=== PATIENT | female | born 1985 | race Caucasian/White ===

== ENCOUNTER → 2017-10-24 | Outpatient (CLI) | payer OTHER ==
[~2017-10-24] MED LIST: ANTIDEPRESSANT; FLUO10; HYDACE5 PO; HYDACE5325 PO; IBUP800 PO; NAPR500 PO; PARO20 PO; PARO30 PO; PENVK500 PO
== END ==
LOC: LAB EV 09:08 → LAB SHORT 09:08
DX: N76.0 Acute vaginitis (principal)
CPT/HCPCS: 87529

== ENCOUNTER → 2017-10-28 | Outpatient (CLI) | payer OTHER | END | disposition home or self-care (01) | LOC: LAB 08:50 → LAB SHORT 08:50 | PROVIDERS: Nurse Practitioner | DX: Z01.411 Encounter for gynecological examination (general) (routine) with abnormal findings (principal) | CPT/HCPCS: G0145 ==

== ENCOUNTER → 2018-07-27 | Outpatient (CLI) | payer OTHER ==
[2018-07-30 03:12] LABS: CHLAMYDIA TRACHOMATIS, NAA Negative (Negative); NEISSERIA GONORRHOEAE, NAA Negative (Negative)
== END | disposition home or self-care (01) ==
LOC: LAB EV 08:15 → LAB SHORT 08:15
PROVIDERS: Nurse Practitioner
DX: Z72.51 High risk heterosexual behavior (principal)
CPT/HCPCS: 87491; 87591

== ENCOUNTER → 2019-01-26 | Outpatient (CLI) | payer OTHER ==
[2019-01-28 02:06] LABS: CHLAMYDIA TRACHOMATIS, NAA Negative (Negative); NEISSERIA GONORRHOEAE, NAA Negative (Negative)
== END | disposition home or self-care (01) ==
LOC: LAB EV 08:30 → LAB SHORT 08:30
PROVIDERS: Nurse Practitioner
DX: Z11.3 Encounter for screening for infections with a predominantly sexual mode of transmission (principal)
CPT/HCPCS: 87491; 87591

== ENCOUNTER → 2019-08-23 | Outpatient (CLI) | payer OTHER | END | disposition home or self-care (01) | LOC: LAB EV 10:00 → LAB SHORT 10:00 | DX: N39.0 Urinary tract infection, site not specified (principal) | CPT/HCPCS: 87086 ==

== ENCOUNTER → 2020-01-19 | Outpatient (CLI) | payer OTHER ==
[2020-01-21 17:10] LABS: CHLAMYDIA BY NAA Negative (Negative); GONOCOCCUS BY NAA Negative (Negative); TRICH VAG BY NAA Negative (Negative)
== END | disposition home or self-care (01) ==
LOC: LAB EV 07:50 → LAB SHORT 07:50
PROVIDERS: Nurse Practitioner
DX: Z11.3 Encounter for screening for infections with a predominantly sexual mode of transmission (principal)
CPT/HCPCS: 87491; 87591; 87661

== ENCOUNTER 2020-06-21 17:35 | Emergency (ER) | payer OTHER ==
[~2020-06-21] VITALS: Ht 175.3 cm; Wt 97.5 kg
== END 2020-06-21 19:40 | disposition left against medical advice (07) ==
LOC: ER 17:35
DX: L98.9 Disorder of the skin and subcutaneous tissue, unspecified (principal); Z53.21 Procedure and treatment not carried out due to patient leaving prior to being seen by health care provider
CPT/HCPCS: 99282

== ENCOUNTER → 2021-06-28 | Outpatient (CLI) | payer OTHER ==
[2021-07-02 11:07] LABS: HPV 16 Negative (Negative); HPV 18 Negative (Negative); HPV OTHER HR TYPES Negative (Negative)
== END | disposition home or self-care (01) ==
LOC: LAB 14:58 → LAB SHORT 14:58
PROVIDERS: Physician Assistant
DX: Z01.419 Encounter for gynecological examination (general) (routine) without abnormal findings (principal)
CPT/HCPCS: 87624; G0145

== ENCOUNTER → 2023-01-29 | Outpatient (CLI) | payer OTHER | LOC: LAB SHORT 11:02 → LAB 11:02 | DX: D22.62 Melanocytic nevi of left upper limb, including shoulder (principal) | CPT/HCPCS: 88305 ==

== ENCOUNTER 2023-03-13 10:10 | Day surgery (SDC) | payer OTHER ==
[~2023-03-13] VITALS: Ht 174 cm; Wt 100.9 kg
[2023-03-13] VITALS (11 sets, daily range): BP systolic 122–152; BP diastolic 8–102
[~2023-03-13 10:10] MED LIST changes: +ATIVAN0.5 MG PO; +FERSU300 PO; +FOLI1 PO; +LAMOTRIGINE25 M2 PO; +LOSA50 PO; +METPHE10 PO; +PROP10 PO
--- NOTE | 2023-03-13 11:16 | NUR ---
History, Chart, Medications and Allergies reviewed before start of procedure. Ambulatory in Day Surgery. Pre-Op teaching done. Pt verbalizes understanding. Patient confirms NPO status and agrees with scheduled surgery. Patient reports completing Chlorhexadine shower X2 prior to admission to hospital. Lungs clear T/O to Auscultation. Patient States Post-Procedure ride home has been arranged.
--- NOTE | 2023-03-13 14:18 | NUR ---
PT GIVEN 25 MCG FENTANYL DUE TO POSTOP PAIN IN [place]. REPORT GIVEN TO JONNY LINDO RN.
--- NOTE | 2023-03-13 15:08 | NUR ---
Discharge instructions reviewed with patient. Patient verbalizes understanding. Copy given to patient to take home. Patient States Post-Procedure ride home has been arranged. Discharged via wheelchair to private car for ride home.
== END 2023-03-13 22:45 | disposition home or self-care (01) ==
LOC: ORSCMMR 10:10 → ORD 10:30 → ORSCMMR 10:30
PROVIDERS: Surgery
PROC: 07B60ZX Excision of Left Axillary Lymphatic, Open Approach, Diagnostic (ICD-10-PCS; principal; 2023-03-13 10:30)
PROC: 0HXCXZZ Transfer Left Upper Arm Skin, External Approach (ICD-10-PCS; principal; 2023-03-13 10:30)
DX: C43.62 Malignant melanoma of left upper limb, including shoulder (principal); D36.0 Benign neoplasm of lymph nodes; I10 Essential (primary) hypertension; K21.9 Gastro-esophageal reflux disease without esophagitis; F90.9 Attention-deficit hyperactivity disorder, unspecified type; F41.9 Anxiety disorder, unspecified; F31.9 Bipolar disorder, unspecified; Z79.899 Other long term (current) drug therapy
CPT/HCPCS: 78195; 88305; 88307; 88341; 88342; A9520; J0690; J1100; J1885; J2250; J2405; J2704; J3010; J7120; Q9968

== ENCOUNTER → 2024-02-05 | Outpatient (CLI) | payer OTHER ==
[2024-02-06 12:53] LABS: Bacterial Vaginosis PCR Negative (NEGATIVE); Candida Group, PCR NOT DETECTED (NOT DETECT); Candida glabrata-krusei, PCR NOT DETECTED (NOT DETECT)
[2024-02-06 13:27] LABS: Chlamydia Trachomatis Vaginal NOT DETECTED (NOT DETECT); Neisseria Gonorrhoea Vaginal NOT DETECTED (NOT DETECT)
[2024-02-12 17:51] LABS: HPV HIGH RISK BY TMA Not Detected; HPV SOURCE Cervical
== END ==
LOC: LAB 14:00 → LAB SHORT 14:00
PROVIDERS: Family Medicine
DX: Z01.419 Encounter for gynecological examination (general) (routine) without abnormal findings (principal)
CPT/HCPCS: 87481; 87491; 87591; 87624; 87661; 87801; G0123